=== PATIENT | female | born 1965 | race Caucasian/White ===

== ENCOUNTER 2018-01-13 17:45 | Emergency (ER) | payer BC ==
[2018-01-13 19:06] VITALS: BP 122/59
[2018-01-13] MEDS ORDERED: Sulfamethox/Trimethoprim DS 800/160* TAB PO ONE (19:22)
[2018-01-13] MEDS ORDERED: Phenazopyridine TAB* 100 MG PO ONE (19:22)
--- NOTE | 2018-01-13 19:27 | UC ---
Complaint Female HPI - HPI Summary HPI Summary: C/O UTI symptoms starting today with urgency and frequency with some hematuia. Some chlls. - History Of Current Complaint Chief Complaint: [facility]CGU Stated Complaint: URINARY Time Seen by Provider: 01/13/18 19:16 Hx Obtained From: Patient ?: No Onset/Duration: Sudden Onset, Lasting Hours - 6, Worse Since - onset Timing: Constant Severity Initially: Mild Severity Currently: Moderate Pain Intensity: 7 Character: Burning, Cramping Aggravating Factor(s): Urination Associated Signs And Symptoms: Positive: Negative Related Hx: Similar Episode/Dx as: - UTI - Allergies/Home Medications Allergies/Adverse Reactions: Allergies Allergy/AdvReac Type Severity Reaction Status Date / Time No Known Allergies Allergy Verified 01/13/18 19:06 Home Medications: Home Medications Ibuprofen 400 mg PO ONCE 01/13/18 [History Confirmed 01/13/18] PMH/Surg Hx/FS Hx/Imm Hx Previously Healthy: Yes - Surgical History Surgical History: Yes Surgery Procedure, Year, and Place: JAW SURGERY. ABLATION. TUBAL LIGATION - Family History Known Family History: Positive: Cardiac Disease, Hypertension - Social History Occupation: Employed Full-time Lives: Alone - with boyfriend Alcohol Use: Occasionally Substance Use Type: None Smoking Status (MU): Never Smoked Tobacco Review of Systems Genitourinary: Hematuria, Frequency, Urgency Is Patient Immunocompromised?: No All Other Systems Reviewed And Are Negative: Yes Physical Exam Triage Information Reviewed: Yes Appearance: Well-Appearing, No Pain Distress, Well-Nourished Vital Signs: Initial Vital Signs Temp 98.1 F 01/13/18 18:59 Pulse 88 01/13/18 18:59 Resp 19 01/13/18 18:59 BP 122/59 01/13/18 18:59 Pulse Ox 99 01/13/18 18:59 Vital Signs Reviewed: Yes Eyes: Positive: Conjunctiva Clear Neck exam: Normal Respiratory Exam: Normal Cardiovascular Exam: Normal Abdomen Description: Positive: No Organomegaly, Soft. Negative: Nontender - suprapubic tenderness Bowel Sounds: Positive: Present Musculoskeletal Exam: Normal Neurological Exam: Normal Psychological Exam: Normal Skin Exam: Normal Complaint Female Dx - Differential Dx/Diagnosis Differential Diagnosis/HQI/PQRI: Appendicitis, Ureteral Stone, Urinary Tract Infection Provider Diagnoses: Acute cystitis with hematuria Discharge - Sign-Out/Discharge Documenting (check all that apply): Patient Departure All imaging exams completed and their final reports reviewed: No Studies - Discharge Plan Condition: Stable Disposition: HOME Prescriptions: Phenazopyridine 200 mg (NF) [Pyridium 200 MG tab *] 200 mg PO TID PRN #6 tab PRN Reason: UTI symptoms Sulfamethox/Trimethoprim DS* [Bactrim DS 800/160 TAB*] 1 tab PO BID #10 tab Patient Education Materials: Urinary Tract Infection in Women (ED), Phenazopyridine (By mouth), Sulfamethoxazole/Trimethoprim (By mouth) Referrals: Jaimee Morel [Primary Care Provider] - - Billing Disposition and Condition Condition: STABLE Disposition: Home
== END 2018-01-13 19:37 | disposition home or self-care (01) ==
LOC: UCCORT 17:45
DX: N30.01 Acute cystitis with hematuria (principal)
CPT/HCPCS: 81003; 87086; 99202; A9270-GY; G0463